=== PATIENT | female | born 1975 | race Caucasian/White ===

== ENCOUNTER 2016-08-10 13:56 | Emergency (ER) | payer OTHER ==
--- NOTE | ~2016-08-10 | CR126 ---
[facility] A Service of [facility] & [facility] RADIOLOGY TEXT RESULTS PATIENT: LETY PHAM LOCATION: [facility] : 73 UNIT #: [id number] AGE: [address]: JAYDEN LINCOLN SEX: F ORDER DR: [id number] [facility] [address] [place], [place] [address] [id number] E MR#: [id number] Acc #: [id number] NAME: LETY PHAM : 1975 SEX: F STUDY DATE/TIME: 08/10/2016 13:44 UNIT: [facility] ROOM: STUDY DESCRIPTION: CR Foot Complete Min 3 View Lt Attending Physician: Jayden Lincoln A.P.R.N. Ordering Physician: Ed Prabhakar Bella M.D. Primary Care Physician: No Primary Care Physician MEDICAL IMAGING REPORT This report is preliminary unless electronic signature is present EXAM Left foot HISTORY Foot pain for the past 6-7 months after a twisting injury. TECHNIQUE 3 views of the foot were obtained. FINDINGS 3 views of the foot show a small plantar heel spur. There is no evidence of fracture or cortical bone destruction. Mild degenerative changes are seen at the first MTP joint with small osteophytes. Small osteophytes are also seen at the anterior aspect of the distal tibia. IMPRESSION Mild degenerative change at the first MTP joint. Small plantar heel spur. No acute abnormalities noted. Dictated by... Brooks Parker M.D. THIS IS AN ELECTRONICALLY VERIFIED REPORT Brooks Parker M.D. at 08/10/2016 6:17 PM MARGARETH/trey TD: 08/10/2016 14:51 JOB #: [id number] MEDICAL IMAGING REPORT Page 1 of 1 COPY
--- NOTE | ~2016-08-10 | CR20 ---
[facility] A Service [facility] RADIOLOGY TEXT RESULTS PATIENT: LETY PHAM LOCATION: [facility] : 73 UNIT #: [id number] AGE: [address]: JAYDEN FINE SEX: F ORDER DR: [id number] [facility] [address] [place], [place] [address] [id number] E MR#: [id number] Acc #: [id number] NAME: LETY PHAM. : 1975 SEX: F STUDY DATE/TIME: 08/10/2016 13:42 UNIT: [facility] ROOM: STUDY DESCRIPTION: CR Ankle Min 3 Views Lt Attending Physician: Jayden Fine A.P.R.N. Ordering Physician: Jayden Fine A.P.R.N. Primary Care Physician: No Primary Care Physician MEDICAL IMAGING REPORT This report is preliminary unless electronic signature is present EXAM Left ankle HISTORY Left ankle pain after twisting injury 6-7 months ago. COMPARISON 03/12/2016 TECHNIQUE 3 views of the ankle were obtained. FINDINGS 3 views the ankle show chronic ligamentous ossification on the medial side at the tip of the medial malleolus. The ankle mortise is symmetric. No acute bony abnormalities are seen. No osteochondral fragments are noted. The subtalar joint has a normal appearance. There is a small heel spur. 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 No change from previous exam. Dictated by... Brooks Parker M.D. THIS IS AN ELECTRONICALLY VERIFIED REPORT Brooks Parker M.D. at 08/10/2016 6:17 PM RLF/ria TD: 08/10/2016 14:41 [facility] A Service [facility] RADIOLOGY TEXT RESULTS PATIENT: LETY PHAM LOCATION: [facility] : 73 UNIT #: [id number] AGE: [address]: JAYDEN FINE SEX: F ORDER DR: MERLYN #: [id number] MEDICAL IMAGING REPORT Page 1 of 1 COPY
[~2016-08-10 13:56] MED LIST: BACTRIM DS TABL1 TA1 PO; CIPRO PO; CLINDAMYCIN HC300 MG PO; HYDROCODON-ACE1 EAC9 PO; NO MEDICATIONS; ULTRAM PO
== END 2016-08-10 14:50 | disposition home or self-care (01) ==
LOC: CFTX 13:56
DX: M25.572 Pain in left ankle and joints of left foot (principal); F17.200 Nicotine dependence, unspecified, uncomplicated
CPT/HCPCS: 29515; 73610; 73630; 96372; 99283; J1885

== ENCOUNTER 2016-09-28 17:06 | Emergency (ER) | payer OTHER | END 2016-09-28 19:40 | disposition left against medical advice (07) | LOC: CED 17:06 | DX: Z53.21 Procedure and treatment not carried out due to patient leaving prior to being seen by health care provider (principal) ==

== ENCOUNTER 2016-12-04 08:09 | Emergency (ER) | payer OTHER ==
[~2016-12-04] VITALS: Ht 172.7 cm; Wt 90.7 kg
--- NOTE | ~2016-12-04 | CR219 ---
[facility] A Service of [facility] & [facility] RADIOLOGY TEXT RESULTS PATIENT: LETY PHAM LOCATION: [facility] : 73 UNIT #: [id number] AGE: [address]: Alvarado Nolan MD SEX: F ORDER DR: [id number] [facility] [address] [place], [place] [address] [id number] E MR#: [id number] Acc #: [id number] NAME: LETY PHAM : 1975 SEX: F STUDY DATE/TIME: 12/04/2016 8:59 UNIT: [facility] ROOM: STUDY DESCRIPTION: CR Sacrum and Coccyx Min 2 Vie Attending Physician: Alvarado Nolan M.D. Ordering Physician: Alvarado Nolan M.D. Primary Care Physician: No Primary Care Physician MEDICAL IMAGING REPORT This report is preliminary unless electronic signature is present EXAM Sacrum and coccyx, 3 views, 12/04/2016. HISTORY Sacrum and coccygeal pain, tailbone pain for 1 week status post fall on concrete. FINDINGS Three views of the sacrum and coccyx demonstrate no fracture. The bones are normally mineralized. There is no soft tissue abnormality. IMPRESSION Negative sacrum and coccyx. Dictated by... Reed Paz M.D. THIS IS AN ELECTRONICALLY VERIFIED REPORT Reed Paz M.D. at 12/05/2016 7:27 AM DANIEL/margarita TD: 12/04/2016 13:59 JOB #: [id number] MEDICAL IMAGING REPORT Page 1 of 1 COPY
--- NOTE | ~2016-12-04 | CR181 ---
[facility] A Service of [facility] RADIOLOGY TEXT RESULTS PATIENT: LETY PHAM LOCATION: [facility] : 73 UNIT #: [id number] AGE: [address]: Alvarado Nolan MD SEX: F ORDER DR: [id number] [facility] [address] [place], [place] [address] [id number] E MR#: [id number] Acc #: [id number] NAME: LETY PHAM : 1975 SEX: F STUDY DATE/TIME: 12/04/2016 8:59 UNIT: [facility] ROOM: STUDY DESCRIPTION: CR Lumbar Spine 2 or 3 Views Attending Physician: Alvarado Nolan M.D. Ordering Physician: Alvarado Nolan M.D. Primary Care Physician: No Primary Care Physician MEDICAL IMAGING REPORT This report is preliminary unless electronic signature is present EXAM Lumbar spine 3 views 12/04/2016 HISTORY Low back pain and left hip pain status post fall on concrete 1 week ago. FINDINGS 3 views of the lumbar spine demonstrate mild anterior compression deformity which is of indeterminate age involving the 11th thoracic vertebral body. If there is clinical concern for acute or subacute fracture in this region, consider correlation with CT scan. The posterior vertebral body line is intact and there is no anterolisthesis or retrolisthesis. The disc spaces are normally maintained. Small anterior osteophytes are seen from L3-L5. IMPRESSION 1. Mild anterior compression deformity which is of indeterminate age possibly chronic involving the 11th thoracic vertebral body best seen on the lateral view. There is only minimal loss of vertebral body height anteriorly. Consider correlation with CT scan if there is clinical concern for acute or subacute fracture. 2. Minimal degenerative change in the lumbar spine. Dictated by... Reed Paz M.D. THIS IS AN ELECTRONICALLY VERIFIED REPORT Reed Paz M.D. at 12/05/2016 7:27 AM DANIEL/trey TD: 12/04/2016 14:24 JOB #: [id number] [facility] A Service of [facility] & [facility] RADIOLOGY TEXT RESULTS PATIENT: LETY PHAM LOCATION: [facility] : 73 UNIT #: [id number] AGE: [address]: Alvarado Nolan MD SEX: F ORDER DR: MEDICAL IMAGING REPORT Page 1 of 1 COPY
--- NOTE | ~2016-12-04 | CR150 ---
[facility] A Service of [facility] & [facility] RADIOLOGY TEXT RESULTS PATIENT: LETY PHAM LOCATION: [facility] : 73 UNIT #: [id number] AGE: [address]: Alvarado Nolan MD SEX: F ORDER DR: [id number] [facility] [address] [place], [place] [address] [id number] E MR#: [id number] Acc #: [id number] NAME: LETY PHAM : 1975 SEX: F STUDY DATE/TIME: 12/04/2016 8:59 UNIT: [facility] ROOM: STUDY DESCRIPTION: CR Hip Min 2 Views Lt Attending Physician: Alvarado Nolan M.D. Ordering Physician: Alvarado Nolan M.D. Primary Care Physician: No Primary Care Physician MEDICAL IMAGING REPORT This report is preliminary unless electronic signature is present EXAM Left hip, 2 views, 12/04/2016. HISTORY Left hip pain status post fall on concrete 1 week ago. FINDINGS AP and oblique examination of the hip shows adequate mineralization of the bones and a normal anatomic relationship of the femoral head with the acetabulum. There are no hypertrophic changes, fractures, dislocation, or joint capsular distension. No radiopaque foreign body is present about the soft tissues of the hip. IMPRESSION Normal hip. Dictated by... Reed Paz M.D. THIS IS AN ELECTRONICALLY VERIFIED REPORT Reed Paz M.D. at 12/05/2016 7:27 AM DANIEL/margarita TD: 12/04/2016 13:58 JOB #: [id number] MEDICAL IMAGING REPORT Page 1 of 1 COPY
== END 2016-12-04 11:41 | disposition home or self-care (01) ==
LOC: CED 08:09
DX: S70.02XA Contusion of left hip, initial encounter (principal); F17.200 Nicotine dependence, unspecified, uncomplicated; G89.29 Other chronic pain; W19.XXXA Unspecified fall, initial encounter; Y92.9 Unspecified place or not applicable
CPT/HCPCS: 72100; 72220; 73502; 99284